=== PATIENT | female | born 1950 | race Caucasian/White ===

== ENCOUNTER 2024-05-28 12:00 | Emergency (ER) | payer MEDICARE, OTHER ==
[2024-05-28] VITALS (7 sets, daily range): BP systolic 114–156; BP diastolic 58–105
[~2024-05-28] VITALS: Ht 161.3 cm; Wt 68.0 kg
[~2024-05-28 12:00] MED LIST: AMOX/K CLAV875 M1 PO; AMOXICILLIN875 MG OR; AUGMENTIN875TAB PO; AZELASTINE0.1 %; B2 PO; CALCIUM MAGNESIUM & PO; CELEBREX100 MG PO; CEVIMELINE HCL30 MG PO; CHERATUSSIN PO; CIPROFLOXACN500 MG PO; DETOX PO; DOXYCYCL HYC100 MG PO; ESTRACE VAG0.1 MG/GM VA; FEXOFENADINE180 MG PO; FISH OIL1 CAP PO; FLUARIX QUADRIV1 IN1 IM; FLUCONAZOLE100 MG PO; FOLIC ACID800 MCG PO; GLUCOSAMINE500 M3 PO; HORSE CHESTNUT PO; K-PHO1 PO; KEFLEX500 MG PO; METRONIDAZOL0.751; METRONIDAZOLE0.75 % EX; MICARDIS HC1 PO; MIRALAX3350 N1 PO; MONTELUKAST SOD10 MG PO; MUCINEX600 MG PO; NASAL DECONGES0.05 %; NETTLE LEAF PO; NYSTATIN100000 M1 PO; OMEPRAZOLE40 MG PO; POTASSIUM; PREDNISONE10 MG PO; PREVNAR 13 IM; PRILOSEC40 MG PO; PROBIOTI1 PO; PROVENTIL HFA IN; PULMICORT180 MCG IN; QUERCETIN PO; SIMVASTATIN40 MG PO; SINGULAIR PO; SYMBICORT 80-4.5MCG IN; TESSALON200 MG PO; TOBRAMYCIN0.3 % OU; VITAMIN B-121000 MCG PO; VITAMIN C500 M4 PO; VITAMIN D1000 UNIT PO; VIVELLE-DOT0.0375 MG; VIVELLE-DOT0.0375 MG TD; [UNRECOGNIZED DRUG - OTHER]; [UNRECOGNIZED DRUG - OTHER]; [UNRECOGNIZED DRUG - OTHER]; [UNRECOGNIZED DRUG - OTHER]; [UNRECOGNIZED DRUG - OTHER] NAB; [UNRECOGNIZED DRUG - OTHER] PO
[2024-05-28] MEDS ORDERED: ONDANSETRON HCl 4 MG/2 ML SDV IV ONE (13:35)
[2024-05-28 13:48] LABS: BASO% 0.1 % (0-3); HEMATOCRIT 41.5 % (37.0-47.0); HEMOGLOBIN 13.4 g/dl (12.0-16.0); IMMATURE GRANULOCYTES 0.6 % (0.0-5.0); LYMPH% 2.4 % (15-41); MEAN CELL VOLUME 95.4 fL CALC (80.0-100.0); MEAN CORPUSCULAR HGB 30.8 pG CALC (26.0-32.0); MEAN CORPUSCULAR HGB CONC 32.3 g/dL CAL (32.0-36.0); MONO% 6.3 % (2-13); NEUT# 15.72 thou/uL (2.00-7.15); NEUT% 90.6 % (42-76); RED BLOOD COUNT 4.35 mill/uL (4.20-5.60); RED CELL DISTRI WIDTH 12.7 % (11.5-15.5)
[2024-05-28 14:05] LABS: ALBUMIN 4.2 g/dL (3.2-5.0); BILIRUBIN, TOTAL 0.9 mg/dL (0.02-1.3); CREATININE 0.7 mg/dL (0.5-1.0); POTASSIUM 4.3 mmol/l (3.5-5.1); TOTAL PROTEIN 6.3 g/dL (6.3-8.2)
[2024-05-28] MEDS ORDERED: SODIUM CHLORIDE 0.9% 1,000 ML IV ONE ×2 (14:05→14:10)
[2024-05-28] MEDS ORDERED: MORPHINE SULFATE 4 MG/ML VIAL IV ONE (14:05)
[2024-05-28 15:44] LABS: URINE BILIRUBIN - DIPSTICK Negative (NEGATIVE); URINE BLOOD DIPSTICK Trace-lysed (NEGATIVE); URINE COLOR Yellow; URINE GLUCOSE - DIPSTICK Negative (NEGATIVE); URINE KETONE Negative (NEGATIVE); URINE LEUK ESTERASE Negative (NEGATIVE); URINE NITRITE - DIPSTICK Negative (Negative); URINE PROTEIN - DIPSTICK Negative (NEG-TRACE); URINE SPECIFIC GRAVITY 1.015; URINE UROBILINOGEN - DIPSTICK 0.2 E.U./dL (0.2)
[2024-05-28] MEDS ORDERED: TRAMADOL HYDROC50 M1 PO (16:02)
[2024-05-28] MEDS ORDERED: AMOX/K CLAV875 M1 PO (16:02)
[2024-05-28] MEDS ORDERED: ZOFRAN4 MG/TAB PO (16:02)
== END 2024-05-28 16:35 | disposition home or self-care (01) ==
LOC: ED 12:00
PROVIDERS: Family Medicine
DX: K57.32 Diverticulitis of large intestine without perforation or abscess without bleeding (principal); I10 Essential (primary) hypertension; I48.91 Unspecified atrial fibrillation; J45.909 Unspecified asthma, uncomplicated; K58.9 Irritable bowel syndrome, unspecified; K90.0 Celiac disease
CPT/HCPCS: J2405